=== PATIENT | male | born 1955 | race African-American/Black ===

== ENCOUNTER 2017-07-12 18:22 | Inpatient (IN) | payer OTHER ==
[~2017-07-12] VITALS: Ht 193 cm; Wt 83.9 kg
[~2017-07-12 18:22] MED LIST: ALBU18HF2 IH; BUDE6.9H INH; ESOM20CA; MECL25TA3
[2017-07-12] MEDS ORDERED: AMLO2.5T2 PO (18:29)
[2017-07-12] MEDS ORDERED: FURO-152 PO (18:29)
[2017-07-12] MEDS ORDERED: FUROSEMIDE 40MG/4ML VIAL IV STA (18:37)
[2017-07-12] MEDS ORDERED: NITROGLYCERIN OINT 1GM/INCH UDPKT TD STA (18:37)
[2017-07-12] MEDS ORDERED: ASPIRIN 81MG TABLET PO STA (18:37)
[2017-07-12] MEDS ORDERED: MECLIZINE 25MG TABLET PO ONE (19:30)
[2017-07-12 19:34] LABS: BASOPHILS % 1.5 % (0.0-2.0); EOSINOPHILS % 4.3 % (0.0-5.0); HEMATOCRIT. 36.5 % (42.0-52.0); HEMOGLOBIN. 11.5 g/dL (14.0-18.0); LYMPHOCYTES % 23.6 % (20.0-50.0); MEAN CORPUSCULAR HEMOGLOBIN 25.7 pg (28.0-32.0); MEAN CORPUSCULAR VOLUME 81.3 fL (80.0-94.0); MEAN PLATELET VOLUME 8.3 fl (7.4-10.4); NEUTROPHILS % 62.6 % (40.0-76.0); PLATELET 266 x1000/uL (130-400); RED BLOOD CELL COUNT 4.48 mill/uL (4.7-6.1); RED CELL DISTRIBUTION WIDTH 15.9 % (11.6-14.6)
[2017-07-12 19:40] LABS: CHLORIDE 110 mEq/L (98-107); INR 1.3; PARTIAL THROMBOPLASTIN TIME 27.6 sec (23.4-31.0); PROTHROMBIN TIME 13.6 sec (9.4-11.6)
[2017-07-12 19:42] LABS: CARBON DIOXIDE 20 mEq/L (21-32)
[2017-07-12 19:49] LABS: TROPONIN I < 0.02 ng/mL (0.00-0.04)
[2017-07-12] MEDS ORDERED: ACETAMINOPHEN 325MG TABLET PO PRN (21:00)
[2017-07-12] MEDS ORDERED: MAGNESIUM/ALUMINUM HYDROXIDE/SIMETHICONE 30ML UDC PO PRN (21:00)
[2017-07-12] MEDS ORDERED: SPIRONOLACTONE 25MG TABLET PO SCH (21:00)
[2017-07-12] MEDS ORDERED: GUAIFENESIN 200MG/10ML SUGAR FREE UDC PO PRN (21:00)
[2017-07-12] MEDS ORDERED: NITROGLYCERIN 0.4MG TABLET SL SL PRN (21:00)
[2017-07-12] MEDS ORDERED: LORAZEPAM 0.5MG TABLET PO PRN (21:00)
[2017-07-12] MEDS ORDERED: CLONIDINE 0.1MG TABLET PO PRN (21:00)
[2017-07-12] MEDS ORDERED: ONDANSETRON HCL 4MG/2ML VIAL IV PRN (21:00)
[2017-07-12] MEDS ORDERED: MECLIZINE 12.5MG TABLET PO PRN (21:00)
[2017-07-12] MEDS ORDERED: DOCUSATE SODIUM 100MG CAPSULE PO PRN (21:00)
[2017-07-12] MEDS ORDERED: ZOLPIDEM TARTRATE 5MG TABLET PO PRN (23:00)
[2017-07-12] MEDS ORDERED: KETOROLAC 15MG/ML VIAL IV PRN (23:00)
[2017-07-12] MEDS ORDERED: NA PHOS,M-B/NA PHOS,DI-BA ENEMA 118ML PR PRN (23:00)
[2017-07-12 23:07] LABS: CREATINE KINASE 120 IU/L (39-308); TROPONIN I < 0.02 ng/mL (0.00-0.04)
[2017-07-12 23:09] LABS: CREATINE KINASE MB FRACTION 3.5 ng/mL (0.5-3.6)
[2017-07-12 23:57] LABS: FOLIC ACID (FOLATE) SERUM 16.8 ng/mL (>5.38)
[2017-07-13 00:31] VITALS: BP 123/82
[2017-07-13] MEDS ORDERED: FUROSEMIDE 40MG/4ML VIAL IVP SCH ×2 (00:33→09:00)
[2017-07-13] MEDS ORDERED: CARV25TA47 PO (01:49)
[2017-07-13] MEDS ORDERED: ASPI-1159 PO (01:49)
[2017-07-13] MEDS: IPRATROPIUM/ALBUTEROL 0.5-3(2.5)MG/3ML NEB INH PRN ×2 (02:21→08:45)
[2017-07-13 04:00] VITALS: BP 111/73
[2017-07-13 05:43] LABS: TOTAL IRON BINDING CAPACITY 461 ug/dL (250-450)
[2017-07-13] MEDS ORDERED: CARVEDILOL 3.125 MG TABLET PO SCH (06:00)
[2017-07-13] MEDS ORDERED: SPIRONOLACTONE 25MG TABLET PO SCH (07:00)
[2017-07-13 08:00] VITALS: BP 111/81
[2017-07-13] MEDS ORDERED: ENOXAPARIN 40MG/0.4ML SYR SUBCUT SCH (09:00)
[2017-07-13] MEDS ORDERED: ASPIRIN 325MG EC TABLET PO SCH (09:00)
[2017-07-13] MEDS ORDERED: PANTOPRAZOLE SODIUM 40 MG/VIAL IV SCH (09:00)
[2017-07-13 09:51] VITALS: BP 111/81
[2017-07-13 10:17] LABS: *AMPHETAMINES SCREEN URINE NEGATIVE (NEGATIVE); *BARBITURATES SCREEN URINE NEGATIVE (NEGATIVE); CANNABINOID URINE SCREEN NEGATIVE (NEGATIVE); METHADONE URINE SCREEN NEGATIVE (NEGATIVE); OPIATES URINE SCREEN NEGATIVE (NEGATIVE); PHENCYCLIDINE URINE SCREEN NEGATIVE (NEGATIVE)
[2017-07-13 10:19] LABS: *BENZODIAZEPINES SCREEN URINE NEGATIVE (NEGATIVE); *COCAINE SCREEN URINE PRESUMTIVE POSITIVE (NEGATIVE)
== END 2017-07-13 09:57 | disposition left against medical advice (07) | DRG 194 ==
LOC: ER 18:33 → EDBEDREQ 18:41 → EDBEDREQTM 20:14 → EDBEDREQ 20:14 → 6WST 20:39 → EDBEDREQ 20:45 → EDBEDREQTM 20:45 → ENRESERV 22:17
PROVIDERS: ADMIT Internal Medicine; ATTEND Internal Medicine
DX: I11.0 Hypertensive heart disease with heart failure (principal); N17.0 Acute kidney failure with tubular necrosis; D63.8 Anemia in other chronic diseases classified elsewhere; I50.43 Acute on chronic combined systolic (congestive) and diastolic (congestive) heart failure; I42.9 Cardiomyopathy, unspecified; Z86.711 Personal history of pulmonary embolism; Z91.19 Patient's noncompliance with other medical treatment and regimen; Z95.810 Presence of automatic (implantable) cardiac defibrillator
CPT/HCPCS: 36415; 71045; 80053; 80061; 80305; 82550; 82553; 82607; 82746; 83036; 83540; 83550; 83880; 84484; 85025; 85610; 85730; 93005; 93970; 94640; 96374; 99285; C9113; G0482; J1650; J1940; J7620; J8597